=== PATIENT | female | born 1955 | race Caucasian/White ===

== ENCOUNTER 2016-10-03 14:30 | Outpatient (CLI) | payer OTHER ==
[2016-03-20 17:13] VITALS: BP 116/80
--- NOTE | 2016-10-03 15:23 | Diagnostic Imaging Report ---
[facility] [id number] [facility].[address] [address] Report Submission Date: October 03, 2016 3:15:02 PM CDT Patient Study Name: HUE TOWNSEND Date: October 03, 2016 2:36:43 PM CDT Modality Type: CR Gender: F Description: CHEST : 53 Institution: [facility] Physician: RUSTAM CASTREJON 2 views of the chest History: LEFT SIDED RIB PAIN AFTER FALL ON ELBOW TODAY Findings: Comparison: None available Mild cardiomegaly Left chest wall central venous catheter has tip at the cavoatrial junction There is minimal bibasilar atelectasis. 8 mm right lower lung nodule is seen. No pleural effusion or pneumothorax. No acute osseous pathology Surgical clips are noted at the right axilla Impression: 1. Bibasal atelectasis. 2. No pleural effusion or pneumothorax. Indeterminate right lung nodule. Postsurgical changes right axillary region 3. No obvious left rib fracture on the submitted views. Left chest wall merna cath partially obscures the upper ribs. Electronically signed on October 03, 2016 3:15:02 PM CDT by: Lydia GOMEZ
== END 2016-10-03 14:32 ==
LOC: RAD 14:30
PROVIDERS: ATTEND Family Medicine
DX: J98.11 Atelectasis (principal); Z91.81 History of falling
CPT/HCPCS: 71020

== ENCOUNTER 2017-06-13 14:45 | Outpatient (CLI) | payer OTHER ==
[2016-03-20 17:13] VITALS: BP 116/80
--- NOTE | 2017-06-13 15:49 | Diagnostic Imaging Report ---
DEN CHEN (ED) - OP [facility] [address] [facility].[address] [address] Report Submission Date: Jun 13, 2017 3:19:09 PM [employer] Patient Study Name: HUE TOWNSEND Date: Jun 13, 2017 2:57:28 PM [employer] Modality Type: CR Gender: F Description: CHEST : 53 Institution: [facility] Physician: DEN CHEN (ED) - OP Examination: PA and lateral chest. History: Evaluate lung yeung. Comparison exam: 03 Oct 2016 Findings: PA lateral chest demonstrate a normal cardiac and mediastinal silhouette. Elevated right hemidiaphragm. No focal infiltrate. No blunting of the costophrenic margins. Stable right lower lung granuloma. Surgical clips right axilla. Left-sided merna cath. Osseous structures are appropriate for age. Impression: No acute appearing pulmonary process. Electronically signed on Jun 13, 2017 3:19:09 PM [employer] by: Jose De Jesus GOMEZ
== END 2017-06-13 14:46 ==
LOC: RAD 14:45
PROVIDERS: ATTEND Nurse Practitioner Family
DX: R05 Cough (principal)
CPT/HCPCS: 71020